=== PATIENT | female | born 1980 | race Caucasian/White ===

== ENCOUNTER 2019-08-13 13:07 | Emergency (ER) | payer MEDICAID, OTHER ==
[~2019-08-13] VITALS: Ht 167.6 cm; Wt 81.8 kg
[2019-08-13 15:02] VITALS: BP 100/61
== END 2019-08-13 15:56 | disposition home or self-care (01) ==
LOC: EMS 13:08
DX: S43.101A Unspecified dislocation of right acromioclavicular joint, initial encounter (principal); X50.0XXA Overexertion from strenuous movement or load, initial encounter; Y93.89 Activity, other specified; Y92.149 Unspecified place in prison as the place of occurrence of the external cause; Y99.8 Other external cause status